=== PATIENT | female | born 1995 | race Caucasian/White ===

== ENCOUNTER 2023-10-03 13:46 | Outpatient (CLI) | payer OTHER | END 2023-10-03 13:47 | disposition home or self-care (01) | LOC: BICULT 13:46 | PROVIDERS: ATTEND Student in an Organized Health Care Education/Training Program | DX: N63.21 Unspecified lump in the left breast, upper outer quadrant (principal) | CPT/HCPCS: 77066; G0279 ==

== ENCOUNTER → 2023-10-08 | Day surgery (SDC) | payer OTHER | LOC: BICULT 10:32 | PROVIDERS: ATTEND Student in an Organized Health Care Education/Training Program | PROC: 0H9T3ZX Drainage of Right Breast, Percutaneous Approach, Diagnostic (ICD-10-PCS; principal; 2023-10-08) | DX: N63.12 Unspecified lump in the right breast, upper inner quadrant (principal); R92.8 Other abnormal and inconclusive findings on diagnostic imaging of breast | CPT/HCPCS: 19083; 88305 ==

== ENCOUNTER 2024-04-08 09:03 | Outpatient (CLI) | payer OTHER | END 2024-04-08 09:04 | disposition home or self-care (01) | LOC: BICMAMMO 09:03 | PROVIDERS: ATTEND Student in an Organized Health Care Education/Training Program | DX: N63.21 Unspecified lump in the left breast, upper outer quadrant (principal) | CPT/HCPCS: G0279 ==